=== PATIENT | male | born 1950 | race Caucasian/White ===

== ENCOUNTER 2018-01-17 18:17 | Emergency (ER) | payer OTHER, MEDICARE ==
[~2018-01-17] VITALS: Ht 177.8 cm; Wt 78.9 kg
[2018-01-17 18:48] LABS: BASOPHIL (%) 0.4 % (0-1); BASOPHIL COUNT 0.1 K/uL (0-0.1); EOSINOPHIL (%) 0.3 % (0-5); HEMATOCRIT 45.2 % (38.0-50.0); HEMOGLOBIN 15.8 G/DL (12.5-16.6); IMMATURE GRANULOCYTE (%) 0.6 % (0.0-0.7); LYMPHOCYTE (%) 11.3 % (15-42); LYMPHOCYTE COUNT 1.4 K/uL (1.0-2.8); MCH 28.9 PG (29.0-34.0); MCV 82.6 FL (86-99); MONOCYTE COUNT 0.9 K/uL (0-0.8); NEUTROPHIL (%) 80.4 % (45-76); NEUTROPHIL COUNT 10.2 K/uL (1.8-6.4); PLATELET COUNT 225 K/uL (156-360); RBC DIS.WIDTH-CV 12.6 % (11.8-14.6); RBC DIS.WIDTH-SD 38.2 % (39-53); RED BLOOD COUNT 5.47 M/uL (4.00-5.50); WHITE BLOOD COUNT 12.7 K/uL (4.1-10.2)
[2018-01-17 18:57] LABS: ALBUMIN 4.3 g/dL (3.2-4.8); CHLORIDE 105 mEq/L (99-109); SODIUM 144 mEq/L (136-147)
[2018-01-17 19:00] LABS: GLUCOSE 162 mg/dL (70-99); TOTAL PROTEIN 7.1 g/dL (6.4-8.3)
[2018-01-17 19:02] LABS: TOTAL BILIRUBIN 0.6 mg/dL (0.0-1.0)
[2018-01-17 19:03] LABS: ALKALINE PHOSPHATASE 80 IU/L (3-129); CREATININE 1.5 mg/dL (0.6-1.3); GFR ESTIMATE (CALCULATED) 49 mL/min/ (58.99-99999)
[2018-01-17 19:04] LABS: UREA NITROGEN (BUN) 21 mg/dL (9-23)
[2018-01-17 19:05] LABS: AST (GOT) 24 IU/L (2-34)
[2018-01-17 19:06] LABS: ALT (GPT) 17 IU/L (3-49)
[2018-01-17 20:07] LABS: APPEARANCE CLEAR ((CLEAR)); BILIRUBIN NEGATIVE; BLOOD NEGATIVE; COLOR YELLOW ((YELLOW)); GLUCOSE (STRIP) NEGATIVE; KETONES 20; LEUKOCYTES NEGATIVE; NITRITE NEGATIVE; PROTEIN (STRIP) 100; SPECIFIC GRAVITY 1.027 (1.000-1.030); UROBILINOGEN 0.2 MG/DL (0.2-1.0)
[2018-01-17 20:11] LABS: BACTERIA NONE SEEN /HPF; EPITHELIAL CELLS RARE /HPF; MUCUS TRACE /LPF; UCUL ADDED? NO; WHITE BLOOD CELLS 0-5 /HPF (0-5)
[2018-01-17] MEDS ORDERED: FLOMAX0.4 MG PO (23:15)
[2018-01-17] MEDS ORDERED: ZOFRAN ODT4 MG PO (23:15)
[2018-01-17] MEDS ORDERED: PERCOCET 5/31 TABLET PO (23:15)
[2018-01-18 00:04] VITALS: BP 142/79
== END 2018-01-18 00:08 | disposition home or self-care (01) ==
LOC: EME 18:17
PROVIDERS: Emergency Medicine
DX: N20.1 Calculus of ureter (principal); E78.5 Hyperlipidemia, unspecified; Z85.46 Personal history of malignant neoplasm of prostate; Z90.79 Acquired absence of other genital organ(s); Z88.8 Allergy status to other drugs, medicaments and biological substances
CPT/HCPCS: 74176; 80053; 81003; 85025; 99281; 99285; J1170; J1885; J2405; J7030; J7050